=== PATIENT | male | born 1960 | race African-American/Black ===

== ENCOUNTER 2019-09-25 15:00 | Emergency (ER) | payer MEDICAID, OTHER ==
[~2019-09-25] VITALS: Ht 165.1 cm; Wt 70.8 kg
[2019-09-25 15:26] VITALS: BP 126/76
== END 2019-09-25 17:27 | disposition home or self-care (01) ==
LOC: ER 15:00
DX: U07.1 COVID-19 (principal); F17.210 Nicotine dependence, cigarettes, uncomplicated
CPT/HCPCS: 71045; 87635